=== PATIENT | female | born 1965 | race Hispanic/Latino ===

== ENCOUNTER 2020-04-08 09:20 | Inpatient (IN) | payer OTHER ==
[~2020-04-08] VITALS: Ht 162.6 cm; Wt 83.9 kg
[2020-04-08 10:21] LABS: BASOPHILS % (AUTO) 0.2 % (0.0-5.0); EOSINOPHILS % (AUTO) 0.2 % (0.0-8.0); LYMPHOCYTES % (AUTO) 32.6 % (21.0-51.0); MEAN CORPUSCULAR HEMOGLOBIN 30.6 pg (27.0-33.0); MEAN CORPUSCULAR VOLUME 92.8 fL (79-99); MONOCYTES % (AUTO) 8.4 % (3.0-13.0); NEUTROPHILS % (AUTO) 58.4 % (40.0-77.0); PLATELET COUNT (AUTO) 212 K/uL (130-400); RED BLOOD CELL COUNT(AUTO) 4.31 MIL/uL (4.00-5.50); RED CELL DISTRIBUTION WIDTH 13.2 % (11.0-15.5); WHITE BLOOD COUNT (AUTO) 4.6 K/uL (4.8-10.8)
[2020-04-08 10:36] LABS: CREATININE 0.9 mg/dL (0.5-1.5)
[2020-04-08 10:37] LABS: INR 0.99 (0.85-1.15); PROTHROMBIN TIME 10.6 SEC (9.6-11.6)
[2020-04-08 10:38] LABS: PARTIAL THROMBOPLASTIN TIME 25.7 SEC (26.3-35.5)
[2020-04-08 10:40] LABS: ALBUMIN 4.2 g/dL (3.5-5.0); BILIRUBIN,TOTAL 0.4 mg/dL (0.2-1.0)
[2020-04-08 10:42] LABS: APPEARANCE,URINE Clear (CLEAR); BILIRUBIN,URINE Negative (NEGATIVE); COLOR,URINE Yellow (YELLOW); GLUCOSE, URINE (UA) Negative (NEGATIVE); KETONES,URINE Trace mg/dL (NEGATIVE); LEUKOCYTE ESTERASE ,URINE Negative (NEGATIVE); NITRATE,URINE Negative (NEGATIVE); OCCULT BLOOD,URINE Negative (NEGATIVE); PH,URINE 5.5 (5.0-8.0); PROTEIN,URINE Negative (NEGATIVE); UROBILINOGEN,URINE 0.2 mg/dL (0.2-1.0)
[2020-04-08 11:22] LABS: ABG BASE EXCESS 1.3 mmol/L (-2.0-3.0); ABG HCO3 25.9 mmol/L (21.0-28.0); ABG OXYGEN SATURATION 95.4 % (95.0-99.0); ABG PCO2 41 mmHg (32-45)
[2020-04-08 11:35] LABS: BACTERIA,URINE Rare /HPF (None Seen); RBC,URINE 0-1 /HPF (0-1); SQUAMOUS EPITHELIAL CELL,UR Rare /HPF (0-2); WBC,URINE 0-1 /HPF (0-1)
[2020-04-08] MEDS ORDERED: DEXAMETHASONE SOD PHOSPHATE 4 MG/ML 1ML VIAL IVP SCH (12:45)
[2020-04-08] MEDS ORDERED: ACETAMINOPHEN 325 MG TAB PO PRN (12:45)
[2020-04-08] MEDS ORDERED: CEFTRIAXONE 1G VIAL IVP SCH (12:45)
[2020-04-08 13:14] LABS: HEMOGLOBIN A1C 8.7 % (4.0-6.0)
[2020-04-08] MEDS ORDERED: CEFTRIAXONE 1G VIAL ONE ×2 (13:18→13:19)
[2020-04-08] MEDS ORDERED: DEXAMETHASONE SOD PHOSPHATE 10MG/ML 1ML VIAL ONE (13:18)
[2020-04-08 13:27] LABS: LACTATE DEHYDROGENASE 106 U/L (81-234)
[2020-04-08] MEDS ORDERED: INSULIN HUMULIN R 100 UNIT/ML 3ML SQ SCH (16:30)
[2020-04-08] MEDS ORDERED: INSULIN HUMULIN R 100 UNIT/ML 3ML ONE ×2 (17:45→21:36)
[2020-04-08] MEDS ORDERED: INSULIN GLARGINE 100 UNITS/ML 10 ML VIAL SQ SCH (21:00)
[2020-04-08] MEDS ORDERED: DOXYCYCLINE HYCLATE 100 MG TABLET PO SCH (21:00)
[2020-04-08] MEDS ORDERED: DOXYCYCLINE HYCLATE 100 MG TABLET PO ONE (22:35)
[2020-04-09] MEDS ORDERED: INSLAN SQ (00:15)
[2020-04-09] MEDS ORDERED: MULT-1367 PO (00:23)
[2020-04-09] MEDS ORDERED: VENL-191 PO (00:23)
[2020-04-09] MEDS ORDERED: IBUP-2784 PO (00:23)
[2020-04-09] MEDS ORDERED: LOSA25TA41 PO (00:23)
[2020-04-09] MEDS ORDERED: ROSU10TA28 PO (00:23)
[2020-04-09] MEDS ORDERED: OMEP20CA12 PO (00:24)
[2020-04-09] MEDS ORDERED: METF-444 PO (00:26)
[2020-04-09] MEDS ORDERED: DULA1.5P SQ (00:26)
[2020-04-09 04:28] LABS: BASOPHILS % (AUTO) 0.2 % (0.0-5.0); LYMPHOCYTES % (AUTO) 21.6 % (21.0-51.0); MEAN CORPUSCULAR HEMOGLOBIN 31.1 pg (27.0-33.0); MEAN CORPUSCULAR HGB CONC 33.4 g/dL (32.0-36.0); MEAN CORPUSCULAR VOLUME 92.9 fL (79-99); MONOCYTES % (AUTO) 6.9 % (3.0-13.0); NEUTROPHILS % (AUTO) 70.9 % (40.0-77.0); PLATELET COUNT (AUTO) 227 K/uL (130-400); RED BLOOD CELL COUNT(AUTO) 4.09 MIL/uL (4.00-5.50); WHITE BLOOD COUNT (AUTO) 4.8 K/uL (4.8-10.8)
[2020-04-09 04:49] LABS: ALBUMIN 3.7 g/dL (3.5-5.0); BILIRUBIN,TOTAL 0.3 mg/dL (0.2-1.0); CREATININE 0.8 mg/dL (0.5-1.5); CRP QUANTITATIVE 21.2 mg/L (0.00-9.0); POTASSIUM 4.4 mmol/L (3.5-5.1); TOTAL PROTEIN, SERUM 7.5 g/dL (6.0-8.3)
[2020-04-09] MEDS ORDERED: DOXYCYCLINE HYCLATE 100 MG TABLET PO ONE ×2 (08:13→21:04)
[2020-04-09] MEDS ORDERED: ASCORBIC ACID 500 MG TAB ONE (08:14)
[2020-04-09] MEDS ORDERED: INSULIN HUMULIN R 100 UNIT/ML 3ML ONE ×3 (08:14→17:23)
[2020-04-09] MEDS ORDERED: ZINC SULFATE 220 CAPSULE ONE (08:14)
[2020-04-09] MEDS ORDERED: ASCORBIC ACID 500 MG TAB PO SCH (09:00)
[2020-04-09] MEDS ORDERED: ZINC SULFATE 220 CAPSULE PO SCH (09:00)
[2020-04-09] MEDS ORDERED: GUAIFENESIN-DM 200/20 MG 10 ML PO PRN (10:00)
[2020-04-09] MEDS ORDERED: DEXAMETHASONE SOD PHOSPHATE 10MG/ML 1ML VIAL ONE (12:47)
[2020-04-09] MEDS ORDERED: CEFTRIAXONE 1G VIAL ONE (12:48)
[2020-04-09] MEDS ORDERED: ENOXAPARIN SODIUM 40 MG/0.4 ML SYRINGE SQ SCH (20:00)
[2020-04-09] MEDS ORDERED: MULTIVITAMIN TABLET PO SCH (21:00)
[2020-04-09] MEDS ORDERED: INSULIN GLARGINE 100 UNITS/ML 10 ML VIAL SQ SCH (21:00)
[2020-04-09] MEDS ORDERED: LOSARTAN POTASSIUM 12.5 MG PO SCH (21:00)
[2020-04-09] MEDS ORDERED: ATORVASTATIN 20 MG TABLET PO SCH (21:00)
[2020-04-09] MEDS ORDERED: VENLAFAXINE HCL 75 MG TAB PO SCH (21:00)
[2020-04-09] MEDS ORDERED: MULTIVITAMIN TABLET ONE (21:05)
[2020-04-09] MEDS ORDERED: LOSARTAN 50 MG TABLET ONE (21:05)
[2020-04-10] MEDS ORDERED: ASCORBIC ACID 500 MG TAB ONE (10:03)
[2020-04-10] MEDS ORDERED: DOXYCYCLINE HYCLATE 100 MG TABLET PO ONE (10:03)
[2020-04-10] MEDS ORDERED: ZINC SULFATE 220 CAPSULE ONE (10:03)
[2020-04-10] MEDS ORDERED: ENOXAPARIN SODIUM 40 MG/0.4 ML SYRINGE SQ ONE (10:04)
[2020-04-10 10:20] LABS: BASOPHILS % (AUTO) 0.3 % (0.0-5.0); EOSINOPHILS % (AUTO) 0.1 % (0.0-8.0); HEMATOCRIT 38.7 % (36-48); LYMPHOCYTES % (AUTO) 18.7 % (21.0-51.0); MEAN CORPUSCULAR HEMOGLOBIN 30.3 pg (27.0-33.0); MEAN CORPUSCULAR HGB CONC 33.1 g/dL (32.0-36.0); MEAN CORPUSCULAR VOLUME 91.7 fL (79-99); MONOCYTES % (AUTO) 5.4 % (3.0-13.0); NEUTROPHILS % (AUTO) 75.2 % (40.0-77.0); PLATELET COUNT (AUTO) 241 K/uL (130-400); RED BLOOD CELL COUNT(AUTO) 4.22 MIL/uL (4.00-5.50); RED CELL DISTRIBUTION WIDTH 13.4 % (11.0-15.5); WHITE BLOOD COUNT (AUTO) 7.2 K/uL (4.8-10.8)
[2020-04-10 10:32] LABS: ALBUMIN 3.6 g/dL (3.5-5.0); BILIRUBIN,TOTAL 0.4 mg/dL (0.2-1.0); CREATININE 0.9 mg/dL (0.5-1.5); CRP QUANTITATIVE 31.1 mg/L (0.00-9.0); POTASSIUM 3.8 mmol/L (3.5-5.1); TOTAL PROTEIN, SERUM 7.4 g/dL (6.0-8.3)
[2020-04-10] MEDS ORDERED: IBUPROFEN 400 MG TABLET ONE (15:40)
[2020-04-10] MEDS ORDERED: DEXAMETHASONE SOD PHOSPHATE 10MG/ML 1ML VIAL ONE (15:40)
[2020-04-10] MEDS ORDERED: CEFTRIAXONE 1G VIAL ONE ×2 (15:41→15:43)
[2020-04-10] MEDS ORDERED: DOXY100T2 PO (17:22)
[2020-04-10] MEDS ORDERED: DEXA6TAB7 PO (17:22)
[2020-04-10] MEDS ORDERED: ASPI-1005 PO (17:22)
[2020-04-10] MEDS ORDERED: ZINC220C6 PO (17:22)
[2020-04-10] MEDS ORDERED: INSULIN HUMULIN R 100 UNIT/ML 3ML ONE (17:31)
== END 2020-04-10 18:50 | disposition home or self-care (01) | DRG 177 ==
LOC: EDH 09:20 → OBSVTOIN 12:39 → EDHIP 12:39
PROVIDERS: ADMIT Internal Medicine; ATTEND Internal Medicine
DX: U07.1 COVID-19 (principal); J96.01 Acute respiratory failure with hypoxia; J12.89 Other viral pneumonia; D68.59 Other primary thrombophilia; E87.2 Acidosis; Z80.8 Family history of malignant neoplasm of other organs or systems; Z82.49 Family history of ischemic heart disease and other diseases of the circulatory system; E11.9 Type 2 diabetes mellitus without complications; E78.5 Hyperlipidemia, unspecified; I10 Essential (primary) hypertension; E66.9 Obesity, unspecified; Z68.31 Body mass index [BMI] 31.0-31.9, adult; Z90.710 Acquired absence of both cervix and uterus; Z98.51 Tubal ligation status; Z79.4 Long term (current) use of insulin; G43.909 Migraine, unspecified, not intractable, without status migrainosus
CPT/HCPCS: 36415; 36600; 71045; 80053; 81001; 82550; 82728; 82803; 82948; 83036; 83605; 83615; 84145; 84484; 85025; 85378; 85610; 85730; 86140; 86850; 86900; 86901; 87040; 87426; 87804; 87880; 93005; G0378; J0696; J1100; J1650; J1815